=== PATIENT | male | born 1975 | race Native Hawaiian/Other Pacific Islander ===

== ENCOUNTER 2017-11-27 14:12 | Emergency (ER) | payer BC ==
[~2017-11-27] VITALS: Ht 180.3 cm; Wt 133.8 kg
[2017-11-27 14:25] VITALS: TEMP 98
[2017-11-27] MEDS ORDERED: METOPROLOL TART75 MG PO (15:11)
[2017-11-27] MEDS ORDERED: EQL ASPIRIN LOW81 M1 PO (15:11)
[2017-11-27] MEDS ORDERED: LORA1TAB17 PO (15:12)
[2017-11-27 15:29] LABS: PLATELET COUNT 251 K/uL (142-355)
[2017-11-27 15:37] LABS: POTASSIUM 3.8 mmol/L (3.6-5.2); SODIUM 137 mmol/L (136-145)
[2017-11-27 16:40] VITALS: BP 120/80
== END 2017-11-27 16:43 | disposition home or self-care (01) ==
LOC: ED 14:12
PROVIDERS: Family Medicine
DX: F41.9 Anxiety disorder, unspecified (principal)
CPT/HCPCS: 36415; 80053; 84484; 85027; 85379; 99283